=== PATIENT | female | born 1990 | race African-American/Black ===

== ENCOUNTER 2024-12-29 10:31 | Emergency (ER) | payer MEDICAID ==
[~2024-12-29] VITALS: Ht 160 cm; Wt 82.0 kg
[2024-12-29 10:38] VITALS: BP 138/79; PULSE 85; RESP 18; TEMP 37; O2SAT 99
[2024-12-29 11:25] LABS: BASOPHILS % 0.7 % (0.0-2.0); EOSINOPHILS % 1.9 % (0.0-5.0); HEMATOCRIT. 41.3 % (36.0-48.0); HEMOGLOBIN. 13.6 g/dL (12.0-16.0); LYMPHOCYTES % 28.9 % (20.0-50.0); MEAN CORPUSCULAR HEMOGLOBIN 28.6 pg (28.0-32.0); MEAN CORPUSCULAR HGB CONC 32.8 g/dL (31.0-37.0); MEAN CORPUSCULAR VOLUME 87.1 fL (81.0-99.0); MEAN PLATELET VOLUME 8.8 fl (7.4-10.4); MONOCYTES % 8.8 % (2.0-8.0); NEUTROPHILS % 59.7 % (40.0-76.0); PLATELET 293 x1000/uL (130-400); RED BLOOD CELL COUNT 4.75 mill/uL (4.2-5.4); RED CELL DISTRIBUTION WIDTH 12.4 % (11.6-14.6); WHITE BLOOD COUNT 6.8 x1000/uL (4.5-11.0)
[2024-12-29 11:32] LABS: CHLORIDE 109 mEq/L (98-107); POTASSIUM 4.3 mEq/L (3.5-5.1); SODIUM 139 mEq/L (136-145)
[2024-12-29 11:33] LABS: CARBON DIOXIDE 26 mEq/L (21-32)
[2024-12-29 11:34] LABS: CALCIUM 10.1 mg/dL (8.7-10.4)
[2024-12-29 11:38] LABS: CREATININE 0.7 mg/dL (0.6-1.0); GLUCOSE 87 mg/dL (70-105); UREA NITROGEN BLOOD 7 mg/dL (9-23)
[2024-12-29 11:40] LABS: TROPONIN I HIGH SENSITIVITY 8 ng/L (3.0-34)
[2024-12-29 11:42] LABS: HCG SCREEN NEGATIVE
[2024-12-29] MEDS ORDERED: PROP10TA10 MT (12:02)
[2024-12-29 13:26] LABS: TROPONIN I HIGH SENSITIVITY 7 ng/L (3.0-34)
== END 2024-12-29 14:23 | disposition home or self-care (01) ==
LOC: ER 10:43
DX: F41.9 Anxiety disorder, unspecified (principal); R00.2 Palpitations; F32.A Depression, unspecified
CPT/HCPCS: 36415; 71045; 80048; 83880; 84484; 84703; 85025; 93005; 99285